=== PATIENT | female | born 1980 | race Caucasian/White ===

== ENCOUNTER → 2019-05-25 | Outpatient (CLI) | payer OTHER ==
--- NOTE | 2019-05-25 17:08 | PCVCIMAG ---
APPROVED REPORT Indications Dizziness and Vertigo Syncope Doppler Spectral Velocity Analysis PSV / EDVPSV / EDV ECA (R) 79 / 13 cm/sECA (L) 85 / 14 cm/s dICA (R) 61 / 19 cm/sdICA (L) 68 / 27 cm/s Rajiv (R) 82 / 36 cm/smICA (L) 77 / 32 cm/s pICA (R) 65 / 21 cm/spICA (L) 61 / 22 cm/s Bulb (R) 65 / 18 cm/sBulb (L) 81 / 21 cm/s dCCA (R) 98 / 23 cm/sdCCA (L) 94 / 22 cm/s mCCA (R) 104 / 23 cm/smCCA (L) 123 / 31 cm/s Vert (R) 72 / 19 cm/sVert (L) 71 / 22 cm/s ICA/CCA 0.84ICA/CCA 0.82 Basic Measurements Blood Pressure: Pulses: Right Left RightLeft Brachial(Sitting) 104/97ajZn206/64mmHgTemporal Real Time B-Mode Imaging Vert. (R)AntegradeVert. (L)Antegrade Findings RIGHT CAROTID: The carotid bulb has no significant plaque. The proximal internal carotid artery shows no significant stenosis. The common carotid artery shows no significant stenosis. The external carotid artery shows no significant stenosis. LEFT CAROTID: The carotid bulb has no significant plaque. The proximal internal carotid artery shows no significant stenosis. The common carotid artery shows no significant stenosis. The external carotid artery shows no significant stenosis. Conclusion No significant stenosis of the right internal carotid artery with no significant plaque. No significant stenosis of the left internal carotid artery with no significant plaque.
== END | disposition home or self-care (01) ==
LOC: PCVCIMAG 15:44
PROVIDERS: ATTEND Internal Medicine Cardiovascular Disease
DX: R42 Dizziness and giddiness (principal); R55 Syncope and collapse
CPT/HCPCS: 93880